=== PATIENT | male | born 1945 | race African-American/Black ===

== ENCOUNTER 2018-08-23 18:05 | Inpatient (IN) | payer OTHER ==
[~2018-08-23] VITALS: Ht 165.1 cm; Wt 101.6 kg
[2018-08-23] MEDS ORDERED: SODIUM CHLORIDE 0.9% 500 ML IV ONE (18:13)
[2018-08-23 19:23] LABS: Basophils # (auto) 0.1 uL; Basophils % (auto) 0.8 % (0.0-2.0); Eosinophils # (auto) 0.3 uL; Eosinophils % (auto) 4.4 % (0.0-7.0); Hematocrit 41.4 % (41.0-53.0); Hemoglobin 13.8 g/dL (13.5-17.5); Lymphocytes # (auto) 1.2 uL; Mean Corpuscular Hgb Conc. 33.3 g/dL (32.0-36.0); Mean Corpuscular Volume 93.1 fL (80.0-100.0); Monocytes # (auto) 0.8 uL; Monocytes % (auto) 10.4 % (0.0-12.0); Neutrophils # (auto) 5.2 uL; Neutrophils % (auto) 68.4 % (37.0-80.0); Nucleated Red Blood Cells % 0.1 %; Platelet Count (auto) 295 10^3/uL (140-450); Red Blood Cells 4.44 10^6/uL (4.5-5.90); Red Cell Distribution Width 13.4 % (11.8-14.3); White Blood Cell 7.7 10^3/uL (4.4-10.8)
[2018-08-23 19:39] LABS: Albumin 3.4 g/dL (3.4-5.0); Anion Gap 3 (5-15); Blood Urea Nitrogen 21 mg/dL (7-18); Calcium 9.1 mg/dL (8.5-10.1); Carbon Dioxide 27 mmol/L (21-32); Chloride 107 mmol/L (98-107); Glucose 107 mg/dL (74-106); Potassium 3.6 mmol/L (3.5-5.1); Sodium 137 mmol/L (136-145)
[2018-08-23 19:44] LABS: Alanine Aminotransferase 16 U/L (16-61); Alkaline Phosphatase 80 U/L (45-117); Aspartate Aminotransferase 15 U/L (15-37); BUN/Creatinine Ratio 12.4; Bilirubin, Total 0.4 mg/dL (0.2-1.0); GFR African American 51 mL/min; GFR Non-African American 42 mL/min; Total Protein 7.2 g/dL (6.4-8.2)
[2018-08-23] MEDS ORDERED: ACETAMINOPHEN 500 MG TAB PO PRN (21:30)
[2018-08-23] MEDS ORDERED: TEMAZEPAM 15 MG CAP PO PRN (21:30)
[2018-08-23] MEDS ORDERED: HYDROcodone-ACET 5/325MG TAB PO PRN (21:30)
[2018-08-23] MEDS ORDERED: ONDANSETRON HCL 4 MG/2 ML VIAL IV PRN (21:30)
[2018-08-23] MEDS ORDERED: LACTULOSE 20Gm/30ML SOLN PO PRN (22:00)
[2018-08-23] MEDS: TERAZOSIN HCL 1 MG CAP PO SCH (22:45)
[2018-08-23] MEDS: ATORVASTATIN 20 MG TAB PO SCH (22:45)
[2018-08-23 22:55] VITALS: BP 152/80
[2018-08-23 23:02] LABS: Urine Bacteria FEW /hpf (None Seen); Urine Blood Negative /uL (Negative); Urine Hyaline Cast FEW /lpf (0 - 2); Urine Mucus FEW (None Seen); Urine Specific Gravity 1.026 (1.001-1.035); Urine WBC 14 /hpf (0 - 3)
[2018-08-23 23:23] LABS: Alcohol, Urine 5.2 mg/dL (0-5)
[2018-08-23 23:24] LABS: Amphetamine Screen, Urine NEGATIVE (NEGATIVE); Barbiturate Scree,Urine NEGATIVE (NEGATIVE); Benzodiazephine Screen, Urine NEGATIVE (NEGATIVE); Cannabinoid Screen, Urine POSITIVE (NEGATIVE); Cocaine Screen, Urine NEGATIVE (NEGATIVE); Opiate Scree,Urine NEGATIVE (NEGATIVE); Phencyclidine Screen, Urine NEGATIVE (NEGATIVE)
[2018-08-24] MEDS ORDERED: SIMV-8 PO (00:18)
[2018-08-24] MEDS ORDERED: LISI40TA PO (00:18)
[2018-08-24] MEDS ORDERED: ATEN100T PO (00:18)
[2018-08-24] MEDS ORDERED: TERA1CAP33 PO (00:18)
[2018-08-24 05:41] VITALS: BP 134/109
[2018-08-24 06:01] LABS: Basophils # (auto) 0 uL; Basophils % (auto) 0.6 % (0.0-2.0); Eosinophils # (auto) 0.4 uL; Eosinophils % (auto) 5.6 % (0.0-7.0); Hematocrit 38.6 % (41.0-53.0); Hemoglobin 12.9 g/dL (13.5-17.5); Lymphocytes # (auto) 1.5 uL; Lymphocytes % (auto) 22.6 % (10.0-50.0); Mean Corpuscular Hemoglobin 30.9 pg (28.0-32.0); Mean Corpuscular Hgb Conc. 33.4 g/dL (32.0-36.0); Mean Corpuscular Volume 92.5 fL (80.0-100.0); Monocytes # (auto) 0.8 uL; Monocytes % (auto) 12.2 % (0.0-12.0); Neutrophils # (auto) 3.8 uL; Nucleated Red Blood Cells % 0.1 %; Platelet Count (auto) 271 10^3/uL (140-450); Red Blood Cells 4.18 10^6/uL (4.5-5.90); White Blood Cell 6.5 10^3/uL (4.4-10.8)
[2018-08-24 06:37] LABS: BUN/Creatinine Ratio 11.5; Calcium 8.8 mg/dL (8.5-10.1); Potassium 3.4 mmol/L (3.5-5.1)
[2018-08-24 08:00] VITALS: BP 153/106
[2018-08-24 09:00] VITALS: BP 153/106
[2018-08-24] MEDS: LISINOPRIL 20 MG TAB PO SCH (09:23)
[2018-08-24 13:00] VITALS: BP 153/93
[2018-08-24] MEDS ORDERED: cefTRIAXone 1GM/50ML D5W 50 ML IV ONE (14:45)
[2018-08-24 17:00] VITALS: BP 168/108
[2018-08-24 22:00] VITALS: BP 155/82
[2018-08-24] MEDS: ATORVASTATIN 20 MG TAB PO SCH (23:09)
[2018-08-24] MEDS: TERAZOSIN HCL 1 MG CAP PO SCH (23:09)
[2018-08-25] VITALS (7 sets, daily range): BP systolic 129–190; BP diastolic 85–118
[2018-08-25] MEDS ORDERED: LORazepam 2MG/ML-1ML VIAL ONE (05:32)
[2018-08-25] MEDS ORDERED: LORazepam 2MG/ML-1ML VIAL IV PRN (05:45)
[2018-08-25] MEDS ORDERED: LORazepam 2MG/ML-1ML VIAL IV ONE (05:45)
[2018-08-25] MEDS ORDERED: cefTRIAXone 1GM/50ML D5W 50 ML IV SCH (09:00)
[2018-08-25] MEDS: LISINOPRIL 20 MG TAB PO SCH (09:59)
[2018-08-25] MEDS ORDERED: CYANOCOBALAMIN 500 MCG TAB PO SCH (10:00)
[2018-08-25] MEDS ORDERED: LABETALOL HCL 5 MG/ML ML 20ML VIAL IV ONE (20:30)
[2018-08-25] MEDS: TERAZOSIN HCL 1 MG CAP PO SCH (20:37)
[2018-08-25] MEDS: ATORVASTATIN 20 MG TAB PO SCH (20:37)
[2018-08-25] MEDS ORDERED: LEVETIRACETAM 500 MG TAB PO SCH (22:00)
== END 2018-08-26 02:17 | disposition short-term general hospital (02) | DRG 689 ==
LOC: EDBD 18:05 → ER 18:08 → OVERFLOW 21:25 → EAST 23:08 → TELE-EAST 08-25 05:43
PROVIDERS: ADMIT Nurse Practitioner Family; ATTEND Family Medicine
DX: N39.0 Urinary tract infection, site not specified (principal); G93.41 Metabolic encephalopathy; G45.9 Transient cerebral ischemic attack, unspecified; R47.01 Aphasia; I69.951 Hemiplegia and hemiparesis following unspecified cerebrovascular disease affecting right dominant side; E11.9 Type 2 diabetes mellitus without complications; G83.84 Todd's paralysis (postepileptic); G93.89 Other specified disorders of brain; I10 Essential (primary) hypertension; R56.9 Unspecified convulsions; Z79.899 Other long term (current) drug therapy; Z96.659 Presence of unspecified artificial knee joint; R29.6 Repeated falls; F12.10 Cannabis abuse, uncomplicated; R26.9 Unspecified abnormalities of gait and mobility
CPT/HCPCS: 36415; 70450; 70551; 71045; 80048; 80053; 80061; 80307; 81001; 82607; 82962; 84484; 85025; 93005; 93306; 93886; 94761; 96361; 96365; 97163; A6257; G0378; J0696